=== PATIENT | female | born 1970 | race Caucasian/White ===

== ENCOUNTER 2024-10-22 15:49 | Outpatient (CLI) | payer SELFPAY ==
--- NOTE | 2024-10-22 16:26 | US_ITS ---
WS: [id number] US transvaginal [id number] HISTORY: POST MENOPAUSAL BLEEDING COMPARISON: None available. Study is compromised by body habitus. Uterus: 6.1 cm x 3.3 cm x 2.5 cm. Small size anteverted uterus. No fibroid or mass identified. Endometrium: 0.6 cm. Slightly enlarged endometrium but no mass or increased vascularity identified. Poorly visualized endometrium. Neither ovary identified. No adnexal mass. No free fluid in the cul-de-sac. US/US transvaginal [id number] IMPRESSION: 1. Endometrium measures 6 mm which is abnormal in a postmenopausal patient. Re commend evaluation by TIRE DEBEADER for endometrial biopsy consideration. 2. No mass identified or increased vascularity within the endometrium but this is a limited quality evaluation. 3. Neither ovary identified.
== END 2024-10-22 15:50 | disposition home or self-care (01) ==
LOC: RAD 15:56
PROVIDERS: PCP Nurse Practitioner; Visit Provider Nurse Practitioner
DX: N95.0 Postmenopausal bleeding (principal)
CPT/HCPCS: 76830

== ENCOUNTER 2024-10-29 14:49 | Emergency (ER) | payer SELFPAY ==
--- OUTSIDE RECORDS SUMMARY | 2024-09-29 10:40 | XMS_ITS ---
Author Organization [facility] Address [address] [address] Care Team Providers Care Process Controller Name Role Phone Katrina Pineda Unavailable [phone] Allergies Allergen (clinical drug ingredient) Drug/Non Drug Allergy documented on EMR Reaction Allergy Type Onset Date Status Reese syed Drug Allergy Active REASON FOR VISIT work physical; pt has the paperwork Medications Medication SIG (Take, Route, Frequency, Duration) Notes Start Date End Date Status Fluticasone Propionate 50 MCG/ACT 1 spray in each nostril Nasally Once a day 11/24/2023 Not-Taking Albuterol-Ipratropium Not-Taking Mobic as needed Not-Taking Albuterol Sulfate (2.5 MG/3ML) 0.083% 3 mL as needed Inhalation every 6 hrs Not-Taking Escitalopram Oxalate 10 MG 1 tablet Orally Once a day; Duration: 90 days 12/26/2022 Not-Taking Vitamin D Active Famotidine 10 MG 1 tablet as needed Orally Twice a day Active Ibuprofen 200 MG 1 tablet with food o r milk as needed Orally Three times a day Active ZyrTEC Allergy 10 MG 1 tablet Orally Onc e a day Active Social History Sex Assigned At : Social History Observation Description Sex Assigned At Female Vital Signs Blood pressure systolic 143 mm Hg 09/30/19 25 Blood pressure diastolic 75 mm Hg 025 Heart Rate 70 /min 09/29/2024 Temperature 98.1 degrees Fahrenheit 09/30/19 25 Oximetry 99 % 09/29/2024 Weight 248.4 lbs 09/29/2024 Weight-kg 112.67 kg 09/29/2024 Height 65 in 09/29/2024 Height-cm 165.1 cm 09/29/2024 BMI 41.33 kg/m2 09/29/2024 Encounters Encounter Location Date Provider Diagnosis [address] [address] 09/29/2024 Katrina Pineda Plan Of Treatment No Information Progress Notes * Isrrael KEMP MDOB: 1 (53 yo F)Acc No.[id number]:09/29/2024 Patient: Karly BARCLAYIsrrael Sadie Provider: Sadie Pineda :1970 A ge:53 Y S ex:Female Date:09/29/2024 Address:[address] [place], [place] [id number] Subjective: * Chief Complaints: * 1 . Work physical; pt has the paperwork. * HPI: T ransition of Care: noticing noduals on hand pain in left knee post trauma 09/06 excesive vaginal bleeding after not having menstrual cycle for 2 years loss of appetite fatigue. * Medical History: P artial thyroidectomy, Raynaud's, painful, Pcos, Post menopausal, Spinal stenosis, IBS. * Medications: T aking Vitamin D , Taking Ibuprofen 200 MG Tablet 1 tablet with food or milk as needed Orally Three times a day , Taking Famotidine 10 MG Tablet 1 tablet as needed Orally Twice a day , Taking ZyrTEC Allergy 10 MG Tablet 1 tablet Orally Once a day , Not-Taking Fluticasone Propionate 50 MCG/ACT Suspension 1 spray in each nostril Nasally Once a day , Not-Taking Albuterol-Ipratropium , Not-Taking Albuterol Sulfate (2.5 MG/3ML) 0.083% Nebulization Solution 3 mL as needed Inhalation every 6 hrs , Not-Taking Mobic , Notes to Pharmacist: as needed, Not-Taking Escitalopram Oxalate 10 MG Tablet 1 tablet Orally Once a day , Medication List reviewed and reconciled with the patient * Allergies: K eflex: hives. Objective: * Vitals: B P:143/75mm Hg, HR:70/min, Temp:98.1F, Oxygen sat %:99%, Wt:248.4lbs, Wt-k.67 kg, Ht: 65 in, Ht-cm: 165.1 cm, BMI:41.33Index, Body Surface Area: 2.27. Assessment: Plan: * Treatment: * Billing Information: * Visit Code: * Procedure Codes: * Electronic signature of Quang Pineda FNPBCMSN on 10/29/2024 at 02:53 PM CDT Sign off status: Pending * Provider: Sadie Pineda Date: 09/29/2024 Generated for Amrik atkinson/Taj/Marquis on: 10/29/2024 02:53 PM CDT History and Physical Notes * HPI (History of Present Illness) Category Sub-Category Detail Notes Category Not es Transition of Care noticing noduals on hand pain in left knee post trauma 09/06 excesive vaginal bleeding after not having menstrual cycle for 2 years loss of appetite fatigue
--- OUTSIDE RECORDS SUMMARY | 2024-10-29 14:54 | XMS_ITS | Patient Health Record ---
Author Organization [email or web address] Address [address] [address] Care Team Providers Care Tiltrotor Crew Chief Name Role Phone Katrina Pineda Unavailable [phone] Allergies Allergen (clinical drug ingredient) Drug/Non Drug Allergy documented on EMR Reaction Allergy Type Onset Date Status Reese syed Drug Allergy Active Reason For Referral No Information Medications Medication SIG (Take, Route, Frequency, Duration) Notes Start Date End Date Status Vitamin D Active Famotidine 10 MG 1 tablet as needed Orally Twice a day Active Ibuprofen 200 MG 1 tablet with food o r milk as needed Orally Three times a day Active Fluticasone Propionate 50 MCG/ACT 1 spray in each nostril Nasally Once a day 11/24/2023 Not-Taking ZyrTEC Allergy 10 MG 1 tablet Orally Onc e a day Active Albuterol-Ipratropium Not-Taking Mobic as needed Not-Taking Albuterol Sulfate (2.5 MG/3ML) 0.083% 3 mL as needed Inhalation every 6 hrs Not-Taking Escitalopram Oxalate 10 MG 1 tablet Orally Once a day; Duration: 90 days 12/26/2022 Not-Taking Social History Sex Assigned At : Social History Observation Description Sex Assigned At Female Section Notes: non smoker, no chronic stero id use Problems Problem Type SNOMED Code ICD Code Onset Dates Problem Status W/U Status Risk Notes Problem Chronic pain (88829502) Other chronic pain (G89.29) Active confirmed Problem Mixed anxiety and depressive disorder (787110452) Depression with anxiety (F41.8) Active confirmed Problem Raynaud's disease (264366204) Raynaud's disease without gangrene (I73.00) Active confirmed Problem History of partial thyroidectomy (966908293) History of partial thyroidectomy (E89.0) Active confirmed Problem Stress at home (566666811) Stress at home (F43.9) Active confirmed Vital Signs Heart Rate 70 /min 09/29/2024 Temperature 98.1 degrees Fahrenheit 09/29/2024 Blood pressure diastolic 75 mm Hg 09/29/2024 Oximetry 99 % 09/29/2024 Height-cm 165.1 cm 09/29/2024 Weight-kg 112.67 kg 09/29/2024 Height 65 in 09/29/2024 Blood pressure systolic 143 mm Hg 09/29/2024 Weight 248.4 lbs 09/29/2024 BMI 41.33 kg/m2 09/29/2024 Encounters Encounter Location Date Provider Diagnosis [address] [address] 09/29/2024 Katrina Renner [address] [address] 11/24/2023 Katrina Renner Acute non-recurrent maxillary sinusitis J01.[address] [address] 12/19/2023 Katrinacarrington Pineda Pharyngitis, unspecified etiology J02.9 and Acute URI J06.[address] [address] 04/13/2024 Katrinacarrington Pineda Acute URI J06.9 and Pharyngitis, unspecified etiology J02.9 Assessments Encounter Date Diagnosis (ICD Code) Assessment Notes Treatment Notes Treatment Clinical Notes Section Notes 11/24/2023 Acute non-recurrent maxillary sinusitis (ICD-10 - J01.00) 12/19/2023 Pharyngitis, unspecified etiology (ICD-10 - J02.9) 12/19/2023 Acute URI (ICD-10 - J06.9) 04/13/2024 Pharyngitis, unspecified etiology (ICD-10 - J02.9) 04/13/2024 Acute URI (ICD-10 - J06.9) Plan Of Treatment No Information Medical (General) History Medical History History ICD Code partial thyroidectomy raynaud's, painful pcos post menopausal spinal stenosis IBS Surgical History Surgery Date(Month/Year) partial right thyroidectomy 1999 tubal ligation 1997 cholecystectomy 2008
--- OUTSIDE RECORDS SUMMARY | 2024-10-29 14:54 | XMS_ITS | Encounter Summary ---
Author Organization [facility] Address [address] [place] [address] Care Team Providers Care Director Of Strategic Communications Name Role Phone Davidchavez Jennie Dumont INTERACTIVE DESIGNER Primary Care Provider [phone] Reason for Referral * Radiology Services (Routine) - Closed Specialty Diagnoses / Procedures Referred By Cecilia wellington Referred To Contact Radiology Diagnoses Left breast lump Lump of breast, right Procedures MAMMO BREAST US BILAT LTD Farideh Lyn DO [facility] [address] [address] Phone: tel: fax: Referral ID Status Reason Start Date Expiration Date Visits Requested Visits Authorized [id number] Closed Performing Department To Schedule (SGF) 01/05/2018 02/05/2019 1 1 * Radiology Services (Routine) - Closed Specialty Diagnoses / Procedures Referred By Contiván wellington Referred To Contact Radiology Diagnoses Lump of breast, right Left breast lump Procedures MAMMO DIAGNOSTIC BILATERAL W OR WO CAD Farideh Lyn DO [facility] [address] [address] Phone: tel: fax: Referral ID Status Reason Start Date Expiration Date Visits Re quested Visits Authorized [id number] Closed 01/05/2018 02/05/2019 1 1 Encounter Details Date Type Department Care Team (Latest Contact Info) Description 01/05/2018 Ancillary Orders [facility] Pre-Registration [place] CALL TO MAKE APPOINTMENT ONLY [address] [place] [phone] Farideh Lyn DO NO ADDRESS ON FILE Lump of breast, right; Left breast lump Social History Tobacco Use Types Packs/Day Years Used Date Smoking Tobacco: Never Smokeless Tobacco: Never Alcohol Use Standard Drinks/Week Comments No 0 (1 standard drink = 0.6 oz pur e alcohol) Comments No Sex and Gender Information Value Date Recorded Sex Assigned at Not on file Legal Sex Female 10:22 AM CDT Gender Identity Not on file Sexual Orientation Not on file documented as of this encounter Plan of Treatment Not on file documented as of this encounter Results * MAMMO BREAST US [employer] (01/26/2018 10:46 AM CDT) Anatomical Region Laterality Modality Bilateral Ultrasound 01/26/2018 10:4 6 AM CDT Narrative 02/09/2018 11:31 AM CDT Bilateral diagnostic mammogram and bilateral ultrasound 01/26/2018 HISTORY: The patient is 47 years of age and is here with bilateral lumps one on each side. She was last here on 02/16/2016 and a 3 month follow-up ultrasound was recommended to be done on the right but the patient never returned for the follow-up exam. She has not seen her physician for the areas she is feeling currently. Mammogram: Bilateral craniocaudal, oblique, and medial to lateral view show heterogeneously dense tissue. Comparison is made with the exam of 02/16/2016. No change is seen. No suspicious findings are seen. No dominant masses or suspicious calcifications are seen. There is no mammographic abnormality to correspond with the markers. Bilateral breast ultrasound: Ultrasound on the right over the BB at the 1:00 position shows no discrete or suspicious findings. The area seen on the previous ultrasound is no longer identified. Ultrasound over the BB on the left at the 12:00 position shows no discrete or suspicious findings. No suspicious findings are seen on targeted ultrasound. This mammogram was also analyzed by the Computer Aided Detection System (CAD), R2 ImageChecker, Version 8.3. The patient was given a verbal and written report. She was told to make an appointment with her physician for clinical breast examination. Impression: Diagnostic mammogram and ultrasound are unremarkable. I would recommend the patient make an appointment with her physician for bilateral clinical breast examination. Unless otherwise clinically indicated, I would recommend follow-up screening mammogram in one year. [id number] us Farideh Esteves Lyn DO MAMMO ORDERABLES Leni l Result * MAMMO DIAGNOSTIC BILATERAL W OR WO CAD (01/26/2018 9:55 AM CDT) Anatomical Region Laterality Modality Breast Bilateral Mammography 01/26/2018 9:56 AM CDT Narrative 02/09/2018 11:31 AM CDT Bilateral diagnostic mammogram and bilateral ultrasound 01/26/2018 HISTORY: The patient is 47 years of age and is here with bilateral lumps one on each side. She was last here on 02/16/2016 and a 3 month follow-up ultrasound was recommended to be done on the right but the patient never returned for the follow-up exam. She has not seen her physician for the areas she is feeling currently. Mammogram: Bilateral craniocaudal, oblique, and medial to lateral view show heterogeneously dense tissue. Comparison is made with the exam of 02/16/2016. No change is seen. No suspicious findings are seen. No dominant masses or suspicious calcifications are seen. There is no mammographic abnormality to correspond with the markers. Bilateral breast ultrasound: Ultrasound on the right over the BB at the 1:00 position shows no discrete or suspicious findings. The area seen on the previous ultrasound is no longer identified. Ultrasound over the BB on the left at the 12:00 position shows no discrete or suspicious findings. No suspicious findings are seen on targeted ultrasound. This mammogram was also analyzed by the Computer Aided Detection System (CAD), R2 ImageChecker, Version 8.3. The patient was given a verbal and written report. She was told to make an appointment with her physician for clinical breast examination. Impression: Diagnostic mammogram and ultrasound are unremarkable. I would recommend the patient make an appointment with her physician for bilateral clinical breast examination. Unless otherwise clinically indicated, I would recommend follow-up screening mammogram in one year. [id number] us Farideh Lyn DO MAMMO ORDERABLES Leni l Result documented in this encounter Visit Diagnoses Diagnosis Lump of breast, right Lump or mass in breast Left breast lump Lump or mass in breast Lump of breast, right Lump or mass in breast Left breast lump Lump or mass in breast Left breast lump Lump or mass in breast Lump of breast, right Lump or mass in breast documented in this encounter Care Teams Director Of Strategic Communications Relationship Specialty Start Date End Date Jennie Webb, BUTCH PCP - General Nurse Practitioner Family 10/04/19 documented as of this encounter
--- OUTSIDE RECORDS SUMMARY | 2024-10-29 14:54 | XMS_ITS | Encounter Summary ---
Author Organization [facility] Address [address] [place] [address] Care Team Providers Care Vet Assistant Name Role Phone Jennie Webb Primary Care Provider [phone] Encounter Details Date Type Department Care Team (Latest Contact Info) Description 12/30/2017 Ancillary Orders [facility] Pre-Registration [place] CALL TO MAKE APPOINTMENT ONLY [address] [place] [address] Jennie Webb FNP [address] [place] [address] Encounter for screening mammogram for malignant neoplasm of breast Social History Tobacco Use Types Packs/Day Years [...] on file documented as of this encounter Visit Diagnoses Diagnosis Encounter for screening mammogram for malignant neoplasm of breast Other screening mammogram documented in this encounter Care Teams Vet Assistant Relationship Specialty Start Date End Date Jennie Webb FNP PCP - General Nurse Practitioner Family 10/04/19 documented as of this encounter
--- OUTSIDE RECORDS SUMMARY | 2024-10-29 14:54 | XMS_ITS | Clinical Summary ---
Author Organization [facility] Address [address] [address] [place] [address] Care Team Providers Care Ethical Hacker Name Role Phone Jon Jennie Dumont CONTRACT RUNNER Primary Care Provider [phone] Allergies Active Allergy Reactions Criticality Noted Date Comments Cephalexin Hives High 11/24/2015 Medications LORATADINE (CLARITIN ORAL) Take by mouth. Active albuterol HFA 90 mcg inhaler Take 2 Puffs by inhalation every 6 hours as needed for Shortness of Breath. 8.5 Gram 7 Active lisinopriL (PRINIVIL) 10 mg tablet Take 10 mg by mouth daily. Active Active Problems Problem Noted Date Diagnosed Date H/O partial thyroidectomy 11/24/2015 Mild intermittent asthma without complication Allergic rhinitis 11/24/2015 Family History Medical History Relation Name Comments Other Daughter pcos Thyroid Disease Daughter Colon Cancer Father Heart Disease Father High Cholesterol Father Hypertension Father Breast Cancer Maternal Aunt Breast Cancer Maternal Cousin x3 High Cholesterol Maternal Grandmother Depression Mother Osteoporosis Mother Stroke Mother Thyroid Disease Sister Ovarian Cancer Neg Hx Relation Name Status Comments Daughter Father Alive Maternal Aunt Maternal Cousin x3 Alive Maternal Grandfather Maternal Grandmother Mother Paternal Grandfather Paternal Grandmother Sister Social History Tobacco Use Types Packs/Day Years Used Date Smoking Tobacco: Never Smokeless Tobacco: Never Tobacco Cessation:Counseling Given: Yes Alcohol Use Standard Drinks/Week Comments No 0 (1 standard drink = 0.6 oz pur e alcohol) Comments No Sex and Gender Information Value Date Recorded Sex Assigned at Not on file Legal Sex Female 10:22 AM CDT Gender Identity Not on file Sexual Orientation Not on file Last Filed Vital Signs Vital Sign Reading Time Taken Comments Blood Pressure 148/82 10/04/2019 9:25 AM CDT Pulse 67 10/04/2019 9:25 AM CDT Temperature 36.7 C (98 F) 08/26/2019 5:22 PM CDT Respiratory Rate 20 08/26/2019 5:22 PM CDT Oxygen Saturation 97% 10/04/2019 9:25 AM CDT Inhaled Oxygen Concentration - - Weight 105.3 kg (232 lb 3.2 oz) 10/04/2019 9:25 AM CDT Height 172.7 cm (5' 8 ) 10/04/2019 9:25 AM CDT Body Mass Index 35.31 10/04/2019 9:25 AM CDT Plan of Treatment Health Maintenance Due Date Last Done Comments DTAP/TDAP/TD VACCINES (1 - Tdap) 1989 HEPATITIS B VACCINES (1 of 3 - 19+ 3-dose series) 1989 COLORECTAL SCREENING 12/01/2015 Colorectal Cancer Screening 12/01/2015 FIT-DNA Q 3 years 12/01/2015 FIT/FOBT Q 1 year 12/01/2015 Flex Sig/CT Colonography Q 5 years 12/01/2015 PAP SMEAR 02/21/2019 02/22/2016, 02/22/2016 BREAST CANCER SCREENING 03/26/2020 03/26/20 19, 01/26/2018, 02/16/2016 ZOSTER VACCINE (1 of 2) 2020 CERVICAL CANCER SCREENING 02/21/2021 HPV/Cotest (21-29) 02/21/2021 02/22/2016 HPV/Cotest (30-65) 02/21/2021 02/22/2016 INFLUENZA VACCINE (#1) 2024 Procedures Procedure Name Priority Date/Time Associated Diagnosis Comments MAMMO 3D MARKELL SCREEN BILAT W OR WO CAD Routine 03/26/2019 1:26 PM FINANCIAL AID DIRECTOR Visit for screening mammogram CERV/VAG CYTOPATH, THIN PREP AND HPV Routine 02/22/2016 10:47 AM FINANCIAL AID DIRECTOR Screening for malignant neoplasm of cervix from Last 3 Months or Most Recently Relevant to Health Maintenance Results * MAMMO SCRN BILAT 3D MARKELL W OR WO CAD (03/26/2019 1:26 PM FINANCIAL AID DIRECTOR) Anatomical Region Laterality Modality Breast Bilateral Mammography Narrative 03/30/2019 9:30 AM FINANCIAL AID DIRECTOR Bilateral Digital Mammogram with CAD and 3D Tomography Reason for Exam: Screening Comparison: Compared to: 01/26/2018 MAMMO DIAGNOSTIC BILATERAL W OR WO CAD and 02/16/2016 MAMMO DIGITAL DIAG BILAT Technique: 3D MLO and CC digital tomosynthesis images were acquired and synthesized 2D images (C view) were generated. This digital mammogram was also analyzed by the Computer Aided Detection System CAD). Breast Composition: The breasts are heterogeneously dense, which may obscure small masses. There are no suspicious masses, areas of architectural distortions, or microcalcifications to suggest malignancy. No significant new findings since the prior mammogram(s). Farideh Lyn DO MAMMO ORDERABLES Leni marx Result * CERV/VAG CYTOPATH, THIN PREP AND HPV (CP) (02/22/2016 10:47 AM FINANCIAL AID DIRECTOR) PAP INTERP See Separate Results 02/26/2016 10:23 AM FINANCIAL AID DIRECTOR [facility] Genital SWAB OF ENDOCERVIX / Unknown Collection / Unknown 02/22/2016 10:47 AM FINANCIAL AID DIRECTOR 02/23/2016 8:07 AM FINANCIAL AID DIRECTOR Dania Cruz MD PATHOLOGY/CYTOLOGY ORDERABLES F inal Result [facility] CLIA# [id number] [address] [place] [address] from Last 3 Months or Most Recently Relevant to Health Maintenance Care Teams Ethical Hacker Relationship Specialty Start Date End Date Jennie Webb, BUTCH PCP - General Nurse Practitioner Family 10/04/19
--- OUTSIDE RECORDS SUMMARY | 2024-10-29 14:54 | XMS_ITS | Clinical Summary ---
Author Organization [facility] Address [address] [place]: Epic Prelude ADT [place] [address] Care Team Providers Care Deliver Driver Name Role Phone Jennie Webb WINDOWS SYSTEMS ARCHITECT Primary Care Provider [phone] Allergies Active Allergy Reactions Criticality Noted Date Comments Cephalexin Hives High 11/24/2015 Medications lisinopriL (PRINIVIL) 10 mg tablet Take 10 mg by mouth daily. 0 Active albuterol sulfate 90 mcg/Actuation inhaler Take 2 Puffs by inhalation every 6 hours as needed for Shortness of Breath. 8.5 Gram PRN 7 Active loratadine (CLARITIN ORAL) Take by mouth. 6 Active Active Problems Problem Noted Date Diagnosed Date Mild intermittent asthma without complication Allergic rhinitis 11/24/2015 H/O partial thyroidectomy 11/24/2015 Family History Medical History Relation Name [...] = 0.6 oz pur e alcohol) Comments Unknown Sex and Gender Information Value Date Recorded Sex Assigned at Not on file Legal Sex Female 1:33 PM INTERMEDIATE FRAME TENDER Gender Identity Not on file Sexual Orientation Not on file Last Filed Vital Signs Vital Sign Reading Time Taken Comments Blood Pressure 148/82 10/04/2019 9:25 AM CDT Pulse 67 10/04/2019 9:25 AM CDT Temperature 36.7 C (98 F) 08/26/2019 5:22 PM CDT Respiratory Rate 20 08/26/2019 5:22 PM CDT Oxygen Saturation - - Inhaled Oxygen Concentration - - Weight 105.3 [...] OR WO CAD Routine 03/26/2019 1:26 PM INTERMEDIATE FRAME TENDER Visit for screening mammogram CERV/VAG CYTOPATH, THIN PREP AND HPV Routine 02/22/2016 10:47 AM INTERMEDIATE FRAME TENDER CERV/VAG CYTOPATH, THIN PREP Routine 02/22/2016 10:47 AM INTERMEDIATE FRAME TENDER from Last 3 Months or Most Recently Relevant to Health Maintenance Results * MAMMO SCRN BILAT 3D MARKELL W OR WO CAD (03/26/2019 1:26 PM INTERMEDIATE FRAME TENDER) Anatomical Region Laterality Modality Breast Bilateral Other Narrative 03/30/2019 9:22 AM INTERMEDIATE FRAME TENDER Bilateral Digital Mammogram with CAD and 3D [...] significant new findings since the prior mammogram(s). Procedure Note Mariaa Crump MD - 09/01/2020 Bilateral Digital Mammogram with CAD and 3D [...] significant new findings since the prior mammogram(s). us Farideh Lyn DO MAMMO ORDERABLES Leni l Result * CERV/VAG CYTOPATH, THIN PREP AND HPV (02/22/2016 10:47 AM INTERMEDIATE FRAME TENDER) PAP INTERP See Separate Results 02/26/2016 10:23 AM INTERMEDIATE FRAME TENDER [facility] Genital SWAB OF ENDOCERVIX / Unknown Collection / Unknown 02/22/2016 10:47 AM INTERMEDIATE FRAME TENDER 02/23/2016 8:07 AM INTERMEDIATE FRAME TENDER us Dania Cruz MD PATHOLOGY/CYTOLOGY ORDERABLES F inal Result [facility] CLIA# [id number] [address] [place] [address] [facility] CLIA # [id number] [address] [facility] [place] [address] * CERV/VAG CYTOPATH, THIN PREP (02/22/2016 10:47 AM INTERMEDIATE FRAME TENDER) CLINICAL INFORMATION HEALTHY 02/27/2016 2:45 PM INTERMEDIATE FRAME TENDER [facility] LAST MENSTRUAL PERIOD 02/02/2016 02/27/2016 2:45 PM INTERMEDIATE FRAME TENDER [facility] PREV PAP: SEE COMMENT 02/27/2016 2:45 PM INTERMEDIATE FRAME TENDER [facility] Comment:INFORMATION NOT PROV IDED PREV BX: SEE COMMENT 02/27/2016 2:45 PM INTERMEDIATE FRAME TENDER [facility] Comment:INFORMATION NOT PROV IDED SOURCE Endocervix 02/27/2016 2:45 PM INTERMEDIATE FRAME TENDER [facility] ADEQUACY: SEE COMMENT 02/27/2016 2:45 PM INTERMEDIATE FRAME TENDER [facility] Comment: Satisfactory for evaluation. Endocervical/transformation zone component present. INTERPRETATION SEE COMMENT 6 2:45 PM INTERMEDIATE FRAME TENDER [facility] Comment:Negative for intraep ithelial lesion or malignancy. FISH HATCHERY ASSISTANT: SEE COMMENT 2015 2:45 PM INTERMEDIATE FRAME TENDER [facility] Comment: MLO, CT(ASCP) CT screening location: [place] [address] [address] [place] [address] [id number] REVIEW FISH HATCHERY ASSISTANT: SEE COMMENT 02/27/2016 2:45 PM INTERMEDIATE FRAME TENDER [facility] Comment: AMW, CT(ASCP) CT screening location: [place] [address] [address] [place] Genital SWAB OF ENDOCERVIX / Unknown Collection / Unknown 02/22/2016 10:47 AM INTERMEDIATE FRAME TENDER 02/26/2016 7:49 AM INTERMEDIATE FRAME TENDER Narrative [facility] - 02/27/2016 2:45 PM INTERMEDIATE FRAME TENDER Performing Organization Information: Site ID: SL Name: [facility] Address: [address] [address] [place] [address] Director: Susie Sparrow MD us Dania Cruz MD PATHOLOGY/CYTOLOGY ORDERABLES F inal Result [facility] from Last 3 Months or Most Recently Relevant to Health Maintenance Insurance [address] [place] [address] [facility] [id number] [facility] Address: [facility] [id number] [place] [id number] Care Teams Deliver Driver Relationship Specialty Start Date End Date Jennie Webb FNP PCP - General Nurse Practitioner Family 10/04/19
[2024-10-29 15:03] VITALS: BP 176/113; PULSE 79; RESP 16; TEMP 36.7; O2SAT 100; BMI 38.7
--- NOTE | 2024-10-29 15:44 | CTR_ITS ---
PROCEDURE INFORMATION: Exam: CT Abdomen And Pelvis With Contrast Exam date and time: 10/29/2024 4:00 PM Age: 53 years old Clinical indication: Abdominal pain; Localized; Right lower quadrant (rlq); Additional info: Rlq pain TECHNIQUE: Imaging protocol: Computed tomography of the abdomen and pelvis with contrast. Radiation optimization: All CT scans at this facility use at least one of these dose optimization techniques: automated exposure control; mA and/or kV adjustment per patient size (includes targeted exams where dose is matched to clinical indication); or iterative reconstruction. Contrast material: OMNIPAQUE 350; Contrast volume: 100 ml; Contrast route: INTRAVENOUS (IV); COMPARISON: US transvaginal [id number] 10/22/2024 4:34 PM RADIATION DOSE METRICS: Total DLP (mGy-cm): 1139.53 FINDINGS: Lungs: Lung bases are unremarkable. Liver: Subtle 2 cm ill-defined hypodensity medially in segment 4B. No other liver abnormality. Gallbladder and biliary ducts: Post cholecystectomy. No biliary dilatation. Pancreas: The pancreas is unremarkable. Spleen: .The spleen is unremarkable. Adrenal glands: The adrenal glands are unremarkable. Kidneys and ureters: No hydronephrosis or nephrolithiasis. Stomach and bowel: An increased volume of mural fat is noted in the wall of the ascending and transverse colon. No pericolonic inflammatory changes. Bowel caliber is normal. Appendix: Normal appendix. Intraperitoneal space: No significant peritoneal free fluid. No free peritoneal air. Vasculature: Aortic caliber is normal. Lymph nodes: No lymph node enlargement. Urinary bladder: No focal wall thickening of the urinary bladder. Reproductive: Uterus is unremarkable. No suspicious adnexal lesion seen. Bones/joints: No acute osseous abnormality. Soft tissues: Unremarkable. CT/CT abdomen pelvis w con* [id number] IMPRESSION: 1. Increased fat in the wall of the proximal colon. The finding can represent a normal variant or can sometimes indicate an inflammatory condition such as Crohn's disease. 2. Subtle hypodensity in the left lobe of the liver, favoring fatty infiltration. Initial characterization with nonemergent ultrasound is recommended, followed by liver protocol MRI if lesion remains indeterminate.
[2024-10-29 16:00] LABS: Hematocrit 42.3 % (36-47); Hemoglobin 12.90 g/dL (11.27-16.99); Mean Corpuscular HGB Conc 30.5 g/dL (30-55); Mean Corpuscular Hemoglobin 28.9 pg (27-33); Mean Corpuscular Volume 94.6 fl (85-98); Nucleated Red Blood Cells % 0 %; Platelet Count 246 10^3/cmm (157-399); Red Blood Count 4.47 10^6/uL (3.85-5.65); White Blood Count 8.00 10^3/uL (3.29-11.43)
[2024-10-29] MEDS: iohexol 350 mg/mL 500 mL Btl (per mL) IV (16:03)
[2024-10-29 16:10] VITALS: PULSE 79; O2SAT 100
[2024-10-29 16:16] LABS: Alanine Aminotransferase 24 U/L (0-33); Albumin Level 4.3 g/dL (3.5-5.2); Alkaline Phosphatase 113 U/L (35-105); Aspartate Amino Transferase 31 U/L (0-32); Blood Urea Nitrogen 16 mg/dL (6-20); Calcium 9.1 mg/dL (8.5-10.5); Carbon Dioxide 21 mmol/L (22-29); Chloride 104 mmol/L (98-107); Creatinine Clr Calc Pharmacy 116.0968; Globulin 3.1 g/dL (1.3-4.6); Glucose 102 mg/dL (65-115); Osmolality Calculated 291 mOsm/kg (285-295); Sodium 140 mmol/L (136-145); Total Protein 7.4 g/dL (6.6-8.7)
[2024-10-29 16:20] LABS: Anion Gap 18.7 (5-19); Potassium 3.7 mmol/L (3.5-5.1)
[2024-10-29 16:32] LABS: Glucose Urine UA Negative (Normal); Nitrate Urine Negative (Negative); Specific Gravity, Urine 1.016 (1.005-1.030)
[2024-10-29 16:35] LABS: HCG Qualitative Urine. Negative (Negative)
[2024-10-29 16:37] LABS: Add Urine Microscopic? YES
--- NOTE | 2024-10-29 17:50 | ED_ITS ---
HPI - Abdominal Pain 2 General: Chief Complaint: Abdominal Pain Stated Complaint: pain in ovary area Time Seen by Provider: 10/29/24 15:44 History of Present Illness: Patient is a postmenopausal female presenting with right-sided ovarian pain and abnormal vaginal bleeding. She reports being postmenopausal for two years with her last normal period in July. She experienced heavy vaginal bleeding starting on that lasted for approximately 8 days. The patient describes bilateral ovarian pain that has been ongoing, with the right-sided pain becoming increasingly severe and now described as a stabbing pain. She has a history of ovarian cysts. The patient had a transvaginal ultrasound performed last week which showed an endometrial thickness of 6mm but was unable to visualize the ovaries. She has been evaluated by her primary care physician who has already scheduled her for an endometrial biopsy. She denies dysuria or urinary symptoms. The patient presents today due to worsening right-sided abdominal pain that she describes as more severe than usual. Related Data Allergies Allergy/AdvReac Type Severity Reaction Status Date / Time cephalexin (From Keflex) Allergy ALGY-Hives Verified 10/29/24 15:06 Physical Exam 2 Const: COMMON NORMALS: no acute distress, average body habitus, alert and well nourished GENERAL APPEARANCE: cooperative ORIENTATION/CONSCIOUSNESS: Yes awake HENMT: COMMON NORMALS: normocephalic and atraumatic HEAD & SCALP: n ormocephalic and atraumatic Eye: COMMON NORMALS: conjunctivae normal CONJUNCTIVA: Yes conjunctivae normal Neck/C-Spine: GENERAL: Yes normal visual inspection Resp: COMMON NORMALS: normal respiratory effort, No retractions and No use of accessory muscles Cardio: COMMON NORMALS: regular rhythm and Peripheral pulses 2+ throughout RHYTHM: regular rhythm PERIPHERAL PULSES: Peripheral pulses 2+ throughout GI: COMMON NORMALS: Soft to palpation PALPATION: Yes Soft to palpation and Yes Tenderness to palpation present (GI) Extremity: COMMON NORMALS: full ROM and no pedal edema Neuro: COMMON NORMALS: no focal motor deficits SENSORIUM/ORIENTATION: Yes alert Skin: COMMON NORMALS: no rashes or lesions noted GENERAL SKIN EXAM: no rashes or lesions noted Course 2 Vital Signs: Vital signs: Vital Signs Temperature 98.0 F 10/29/24 15:03 Pulse Rate 79 10/29/24 16:10 Respiratory Rate 16 10/29/24 15:03 Blood Pressure 176/113 10/29/24 15:03 Pulse Oximetry 100 10/29/24 16:10 Oxygen Delivery Me thod Room Air 10/29/24 15:03 MDM - Abdominal Pain Medical Decision Making ROS: Constitutional: Denies fever, chills, or fatigue. Gastrointestinal: Denies abnormal bowel movements. Genitourinary: Reports postmenopausal vaginal bleeding. Denies dysuria or urinary symptoms. Musculoskeletal: Denies weakness or other musculoskeletal complaints. All other systems reviewed and negative except as noted in HPI. MEDICATIONS AND ALLERGIES: - Meds: Ibuprofen PRN for pain. No daily prescription medications. - Allergies: No known drug allergies. PAST HISTORICAL DATA: - PMH: History of ovarian cysts - PSH: Partial thyroidectomy at age 30 for thyroid nodule, cholecystectomy, bilateral tubal ligation in 1997, tonsillectomy, and myringotomy tubes as a child - Social: Denies tobacco use, alcohol use, or recreational drug use VITAL SIGNS: No specific vital signs verbalized in the asbestos remover. PHYSICAL EXAM: General: Well-appearing female in no acute distress HEENT: Head normocephalic and atraumatic. Mucous membranes moist. Neck: Supple Respiratory: No increased work of breathing, no wheezing Cardiac: Regular rate and rhythm, 2+ pulses in all extremities Abdomen: Soft, non-distended, with mild lower abdominal tenderness, more pronounced on the right side. No guarding or rebound tenderness noted. Neuro: Cranial nerves grossly intact, no focal motor or sensory deficits noted INITIAL IMPRESSION AND PLAN: Given the history and presentation, the primary working diagnosis is right lower quadrant abdominal pain with postmenopausal bleeding. Additional considerations include ovarian cyst, uterine fibroids, endometrial hyperplasia, endometrial polyp, or malignancy. Based on this initial impression I will order CT scan of the abdomen and pelvis to evaluate for possible causes of the abdominal pain including appendicitis, kidney stones, or ovarian pathology. Will also obtain complete blood count, comprehensive metabolic panel, urinalysis, and test to rule out other potential causes. TEST INTERPRETATIONS: - CT scan of abdomen and pelvis: Increased fat in the wall of the proximal colon, which can represent normal variant or sometimes indicate inflammatory conditions such as Crohn's disease (unlikely given patient has no history of Crohn's). Subtle hypodensities in the left lobe of the liver favoring fatty infiltration. Recommendation for outpatient nonemergent ultrasound followed by liver protocol MRI if lesion remains indeterminate. - CBC: Within normal limits - Chemistry panel: Unremarkable - Urinalysis: Unremarkable - test: Negative - Transvaginal ultrasound (from 10/22/2024): Endometrial thickness measuring 6mm, which is abnormal in a postmenopausal patient. No mass identified or increased vascularity within the endometrium. No ovaries were identified on the study. PROCEDURES: No procedures performed during this encounter. CONSIDERED BUT NOT PERFORMED: Repeat transvaginal ultrasound CONSIDERED but NOT DONE due to recent study (10/22/2024) that was unable to visualize the ovaries. Repeating the study was deemed unlikely to provide additional diagnostic information at this time. FINAL IMPRESSION: Based on all the above, my clinical impression is most compatible with right lower quadrant abdominal pain likely related to gynecological pathology in the setting of postmenopausal bleeding with abnormal endometrial thickness. The clinical picture is not currently suggestive of acute appendicitis, kidney stone, or other acute surgical abdomen. Although other conditions were also considered, they were deemed unlikely based on the clinical information available. CLINICAL DISPOSITION: The patient's current condition is stable in my estimation and the most appropriate and indicated disposition at this time is discharge home with close follow-up. The patient is safe for discharge as she has stable vital signs, no evidence of acute surgical pathology on imaging, normal laboratory studies, and already has appropriate follow-up arranged with gynecology for an endometrial biopsy, which is the next appropriate diagnostic step for her postmenopausal bleeding. Her pain is adequately controlled with [id number] medications, and she has clear return precautions. RISK STRATIFICATION AND CLINICAL DECISION RULES APPLIED: No specific clinical decision rules were applicable to this presentation. CASE SUMMARY: Postmenopausal female with history of ovarian cysts presented with right-sided lower abdominal pain and postmenopausal bleeding. Patient had already undergone transvaginal ultrasound showing abnormal endometrial thickness of 6mm and has scheduled endometrial biopsy with gynecology. CT scan of abdomen and pelvis performed today showed no acute pathology to explain her pain. Laboratory studies including CBC, chemistry panel, urinalysis, and test were all unremarkable. The patient's presentation is most consistent with gynecological pathology requiring further evaluation with the already scheduled endometrial biopsy. No acute surgical intervention is indicated at this time. Patient discharged home in stable condition with instructions to follow up with gynecology as scheduled and return to the ED for worsening symptoms. Lab Data I reviewed the patient's lab results. 10/29/24 15:55 10/29/24 15:55 Labs/Radiology: Radiology Impressions Abdomen/Pelvis CT 10/29/24 15:44 IMPRESSION: 1. Increased fat in the wall of the proximal colon. The finding can represent a normal variant or can sometimes indicate an inflammatory condition such as Crohn's disease. 2. Subtle hypodensity in the left lobe of the liver, favoring fatty infiltration. Initial characterization with nonemergent ultrasound is recommended, followed by liver protocol MRI if lesion remains indeterminate. Laboratory Results WBC 8.00 10^3/uL (3.29-11.43) 10/29/24 15:55 RBC 4.47 10^6/uL (3.85-5.65) 10/29/24 15:55 Hgb 12.90 g/dL (11.27-16.99) 10/29/24 15:55 Hct 42.3 % (36-47) 10/29/24 15:55 MCV 94.6 fl (85-98) 10/29/24 15:55 MCH 28.9 pg (27-33) 10/29/24 15:55 MCHC 30.5 g/dL (30-55) 10/29/24 15:55 RDW 13.5 % (12.1-15.1) 10/29/24 15:55 Plt Count 246 10^3/cmm (157-399) 10/29/24 15:55 MPV 10.7 fL (7.4-10.4) H 10/29/24 15:55 Neut % (Auto) 60.8 % 10/29/24 15:55 Lymph % (Auto) 28.6 % 10/29/24 15:55 Sevier % (Auto) 7.9 % 10/29/24 15:55 Eos % (Auto) 1.9 % 10/29/24 15:55 Baso % (Auto) 0.5 % 10/29/24 15:55 Neut # (Auto) 4.87 10^3/uL (1.8-7.7) 10/29/24 15:55 Lymph # (Auto) 2.3 10^3/uL (0.8-4.8) 10/29/24 15:55 [place]vier # (Auto) 0.6 10^3/uL (0.2-0.9) 10/29/24 15:55 Eos # (Auto) 0.2 10^3/uL (0.0-0.8) 10/29/24 15:55 Baso # (Auto) 0.0 10^3/uL (0.0-0.1) 10/29/24 15:55 Nucleated RBC % (auto) 0 % 10/29/24 15:55 Nucleated RBCs # 0.0 /100WBC 10/29/24 15:55 Sodium 140 mmol/L (136-145) 10/29/24 15:55 Potassium 3.7 mmol/L (3.5-5.1) 10/29/24 15:55 Chloride 104 mmol/L (98-107) 10/29/24 15:55 Carbon Dioxide 21 mmol/L (22-29) L 10/29/24 15:55 Anion Gap 18.7 (5-19) 10/29/24 15:55 BUN 16 mg/dL (6-20) 10/29/24 15:55 Creatinine 0.7 mg/dL (0.5-0.9) 10/29/24 15:55 GFR Calculation 87.5 mL/min (90-130) L 10/29/24 15:55 Glucose 102 mg/dL (65-115) 10/29/24 15:55 Calculated Osmolality 291 mOsm/kg (285-295) 10/29/24 15:55 Calcium 9.1 mg/dL (8.5-10.5) 10/29/24 15:55 Total Bilirubin 0.3 mg/dL (0.15-1.2) 10/29/24 15:55 AST 31 U/L (0-32) 10/29/24 15:55 ALT 24 U/L (0-33) 10/29/24 15:55 Alkaline Phosphatase 113 U/L (35-105) H 10/29/24 15:55 Total Protein 7.4 g/dL (6.6-8.7) 10/29/24 15:55 Albumin 4.3 g/dL (3.5-5.2) 10/29/24 15:55 Globulin 3.1 g/dL (1.3-4.6) 10/29/24 15:55 HCG, Qual Negative (Negative) 10/29/24 16:20 Urine Color Yellow (Yellow) 10/29/24 16:20 Urine Appearance Cloudy (CLEAR) A 10/29/24 16:20 Urine pH 6.5 (5-7) 10/29/24 16:20 Ur Specific [place] 1.016 (1.005-1.030) 10/29/24 16:20 Urine Protein Negative (Negative) 10/29/24 16:20 Urine Glucose (UA) Negative (Normal) 10/29/24 16:20 Urine Ketones Negative (Negative) 10/29/24 16:20 Urine Blood Negative (Negative) 10/29/24 16:20 Urine Nitrate Negative (Negative) 10/29/24 16:20 Urine Bilirubin Negative (Negative) 10/29/24 16:20 Urine Urobilinogen 0.2 mg/dL (Negative) 10/29/24 16:20 Ur Leukocyte Esterase Negative (Negative) 10/29/24 16:20 Urine RBC 0-2 /hpf (0-2) 10/29/24 16:20 Urine WBC 0-5 /hpf (0-5) 10/29/24 16:20 Ur Squamous Epith Cells 0-5 /hpf (0-5) 10/29/24 16:20 Amorphous Sediment Not Reportable 10/29/24 16:20 Urine Bacteria None seen /hpf (NONE) 10/29/24 16:20 Hyaline Casts 0-4 /lpf H 10/29/24 16:20 All radiology interpretation(s) finalized by discharge Discharge Plan Discharge Patient Disposition: Home Clinical Impression: Abnormal vaginal bleeding in postmenopausal patient Condition: Stable Discharge Orders: Discharge ED (Routine); Ordered 10/29/24 Ordered By: Marquis Dunham Referrals: Katrina Pineda FNP [Primary Care Provider, Family Practice] Patient Instructions: Opioid Safety, Pain Management, Patient Portal & Cecelia Instructions Activity Restrictions/Additional Instructions: 1. DIAGNOSIS: Right lower abdominal pain and postmenopausal bleeding 2. MEDICATIONS: - Continue ibuprofen 600mg every 6 hours as needed for pain - You may also use acetaminophen (Tylenol) 650mg every 6 hours as needed for pain if ibuprofen is not sufficient 3. FOLLOW-UP: - Attend your scheduled endometrial biopsy appointment with gynecology as planned - Follow up with your primary care physician within 1-2 weeks to discuss the incidental finding of fatty liver changes noted on your CT scan 4. RETURN TO THE EMERGENCY DEPARTMENT IF: - Pain becomes severe or uncontrolled with prescribed medications - Heavy vaginal bleeding (soaking through a pad in less than an hour) - Fever greater than 100.4?F - Nausea or vomiting that prevents you from taking fluids or medications - Dizziness, lightheadedness, or fainting - Any other concerning symptoms develop 5. ADDITIONAL INSTRUCTIONS: - Rest as needed - Stay well-hydrated - The endometrial biopsy is an important next step in your evaluation and should not be delayed Print Language: Setswana Coding Level of Care Code ED Social Science Research Assistant for Lila Ortega
[2024-10-29 17:54] VITALS: BP 158/91; PULSE 77; O2SAT 99
[2024-10-29 18:00] VITALS: BP 158/91; PULSE 77; O2SAT 99
== END 2024-10-29 18:08 | disposition home or self-care (01) ==
PROVIDERS: Emergency Provider Student in an Organized Health Care Education/Training Program; PCP Nurse Practitioner
DX: N93.9 Abnormal uterine and vaginal bleeding, unspecified (principal)
CPT/HCPCS: 74177; 80053; 81001; 81025; 85025; 99285; J7030

== ENCOUNTER 2024-11-12 09:53 | Outpatient (CLI) | payer SELFPAY ==
--- NOTE | 2024-11-12 10:01 | US_ITS ---
WS: [id number] ULTRASOUND ABDOMEN CLINICAL INFORMATION: LOWER ABDOMINAL PAIN COMPARISON: CT 10/29/2024 FINDINGS: Technically difficult study due to body habitus Liver Size: Normal. Craniocaudal length: 13.7 cm. Echogenicity: Slightly coarse Surface nodularity: None. Mass (size and location): None. Bile ducts Intrahepatic ducts: Normal. Common bile duct diameter: 0.5 cm. Gallbladder Cholecystectomy Pancreas Not well visualized Spleen Splenomegaly: None. Craniocaudal length: 11.6 cm. Right kidney: Normal. Hydronephrosis: None. Size: 9.2 cm x 5.1 cm x 4.5 cm Left kidney: Normal. Hydronephrosis: None. Size: 10.1 cm x 5.1 cm x 3.7 cm. Abdominal aorta and IVC Visualized portions are normal. Ascites: None. US/US abdomen complete* [id number] IMPRESSION: Technically difficult study due to body habitus. 1. Mild diffuse fatty infiltration. Liver is otherwise normal in appearance. 2. Prior cholecystectomy. 3. No hydronephrosis in either kidney. 4. Normal common bile duct. 5. No other acute findings.
== END 2024-11-12 09:54 | disposition home or self-care (01) ==
LOC: RAD 09:54
PROVIDERS: PCP Nurse Practitioner; Visit Provider Nurse Practitioner
DX: R10.30 Lower abdominal pain, unspecified (principal); Z90.49 Acquired absence of other specified parts of digestive tract; K76.0 Fatty (change of) liver, not elsewhere classified
CPT/HCPCS: 76700

== ENCOUNTER 2024-12-01 14:20 | Outpatient (CLI) | payer OTHER, SELFPAY ==
--- NOTE | 2024-12-01 14:20 | MM_ITS ---
WS: [id number] BILATERAL 3D TOMOSYNTHESIS DIGITAL SCREENING MAMMOGRAPHY WITH CAD CLINICAL INFORMATION: SCREENING HISTORY: Screening mammogram. No current complaints. COMPARISON: 2019 TECHNIQUE: Bilateral CC and MLO views. FINDINGS: Scattered fibroglandular densities bilaterally. No suspicious focal mass, asymmetry, calcifications, or architectural distortion. No evidence of malignancy. MM/MM scr BI tomosynthesis [id number] IMPRESSION: DENSITY: There are scattered areas of fibroglandular density. BI-RADS: 1 - Negative. FOLLOW UP: 1 Year Follow-up Recommend return to annual screening mammography.
== END 2024-12-01 14:21 | disposition home or self-care (01) ==
LOC: MOBLMAM 14:23
PROVIDERS: PCP Nurse Practitioner; Visit Provider Nurse Practitioner
DX: Z12.31 Encounter for screening mammogram for malignant neoplasm of breast (principal); R92.323 Mammographic fibroglandular density, bilateral breasts
CPT/HCPCS: 77063; 77067

== ENCOUNTER → 2024-12-09 13:18 | Outpatient (BNVA) | payer OTHER, SELFPAY | PROVIDERS: PCP Nurse Practitioner; Visit Provider Family Medicine | DX: S62.316A Displaced fracture of base of fifth metacarpal bone, right hand, initial encounter for closed fracture (principal); X58.XXXA Exposure to other specified factors, initial encounter | CPT/HCPCS: 73110; 73130 ==

== ENCOUNTER → 2024-12-14 14:34 | Outpatient (BNVA) | payer OTHER, SELFPAY | PROVIDERS: PCP Nurse Practitioner; Visit Provider Orthopaedic Surgery | DX: S62.307A Unspecified fracture of fifth metacarpal bone, left hand, initial encounter for closed fracture (principal); W19.XXXA Unspecified fall, initial encounter | CPT/HCPCS: 73130 ==

== ENCOUNTER 2024-12-20 09:36 | Outpatient (CLI) | payer OTHER, SELFPAY | END 2024-12-20 09:37 | disposition home or self-care (01) | LOC: SPT 09:37 | PROVIDERS: PCP Nurse Practitioner; Visit Provider Orthopaedic Surgery | DX: Z46.89 Encounter for fitting and adjustment of other specified devices (principal); S62.396D Other fracture of fifth metacarpal bone, right hand, subsequent encounter for fracture with routine healing; X58.XXXD Exposure to other specified factors, subsequent encounter | CPT/HCPCS: L3807 ==

== ENCOUNTER → 2025-01-04 14:13 | Outpatient (BNVA) | payer OTHER, SELFPAY | PROVIDERS: PCP Nurse Practitioner; Visit Provider Orthopaedic Surgery | DX: S62.396A Other fracture of fifth metacarpal bone, right hand, initial encounter for closed fracture (principal); X58.XXXA Exposure to other specified factors, initial encounter | CPT/HCPCS: 73130 ==

== ENCOUNTER → 2025-01-25 10:25 | Outpatient (BNVA) | payer OTHER, SELFPAY | PROVIDERS: PCP Nurse Practitioner; Visit Provider Orthopaedic Surgery | DX: S62.396A Other fracture of fifth metacarpal bone, right hand, initial encounter for closed fracture (principal); X58.XXXA Exposure to other specified factors, initial encounter | CPT/HCPCS: 73130 ==